=== PATIENT | female | born 1950 | race Caucasian/White ===

== ENCOUNTER 2016-01-05 14:42 | Outpatient (RCR) | payer MEDICARE, OTHER ==
[~2016-01-05] VITALS: Ht 149.9 cm; Wt 80.7 kg
[~2016-01-05 14:42] MED LIST: ACLI400A2 IH; ALBU2.5V4 INH; ALBU8CC IH; ALPR.5T PO; ALPR0.5T PO; ASP81CT PO; ATOR20TA PO; DUONEB 0.5 MG-33 ML IH; FERR325T5 PO; FLUO40CA PO; FLUO40CA12 PO; FLX20C PO; HYDR-3702 PO; HYDR-3754 PO; HYDR-3811 PO; HYDR-3882 PO; MELO15TA14 PO; OMEP20CA12 PO; OXYC1TAB12 PO; OXYGEN; PARO20TA57 PO; PRAM0.252 PO; PRAM0.5T2 PO; QUET150T PO; QUET300T2 PO; QUET300T3 PO; TRAZ150T72 PO; UMEC62.5 IH; VARE1TAB21 PO
[2016-01-05] MEDS ORDERED: IRON SUCROSE 200 MG in NORMAL SALINE 150 ML IV ONE (14:45)
[2016-01-05] MEDS ORDERED: NS FLUSH 10 ML PRN IV (15:05)
[2016-01-19] MEDS ORDERED: IRON SUCROSE 200 MG in NORMAL SALINE 150 ML IV ONE (09:50)
[2016-01-19 10:09] VITALS: BP 125/67
[2016-01-19] MEDS: NS FLUSH 3 ML PRN IV ×2 (10:09→11:17)
== END 2016-04-04 | disposition home or self-care (01) ==
LOC: EUOP 14:53
PROVIDERS: ATTEND Family Medicine
DX: D50.9 Iron deficiency anemia, unspecified (principal)
CPT/HCPCS: 96365; J1756; J7050; 36000

== ENCOUNTER → 2016-04-17 | Outpatient (REF) | payer MEDICARE, OTHER ==
[2016-04-17 13:34] LABS: BASOPHILS % (AUTO) 0 % (0-2); EOSINOPHILS # (AUTO) 0.2 10^3uL; EOSINOPHILS % (AUTO) 1 % (0-4); LYMPHOCYTES # (AUTO) 2.4 X10^3; MEAN CORPUSCULAR HGB CONC 33.3 g/dL (31.0-37.0); MEAN PLATELET VOLUME 12.5 FL (6.0-9.5); MONOCYTES # (AUTO) 0.9 X10^3; MONOCYTES % (AUTO) 8 % (3-11); NEUTROPHILS # (AUTO) 8.6 X10^3; NEUTROPHILS % (AUTO) 71 % (51-67); PLATELET COUNT 344 10^3uL (150-450); WHITE BLOOD COUNT 12.16 10^3uL (4.0-11.0)
[2016-04-17 13:35] LABS: MEAN CORPUSCULAR HEMOGLOBIN 26.3 PG (26.0-34.0); MEAN CORPUSCULAR VOLUME 79 FL (80-100)
[2016-04-17 13:44] LABS: ANION GAP 17.1 MEQ/L (3-15)
[2016-04-17 14:04] LABS: BILIRUBIN,URINE Negative (Negative); CLARITY,URINE Cloudy; GLUCOSE, URINE (UA) Negative (Negative); LEUKOCYTE ESTERASE ,URINE Negative (Negative); UROBILINOGEN,URINE 0.2 mg/dL (0.2-1.0)
[2016-04-17 14:06] LABS: COLOR,URINE Dark Yellow
== END ==
LOC: LAB 13:05
PROVIDERS: ATTEND Family Medicine
DX: Z01.818 Encounter for other preprocedural examination (principal); Z87.19 Personal history of other diseases of the digestive system; K31.811 Angiodysplasia of stomach and duodenum with bleeding
CPT/HCPCS: 80048; 81003; 85025; 85610; 85730

== ENCOUNTER → 2016-04-17 | Outpatient (CLI) | payer MEDICARE, OTHER ==
--- NOTE | 2016-04-17 16:03 | Diagnostic Imaging Report ---
INDICATION: Preoperative evaluation, COPD. DISCUSSION: Two views of the chest were obtained, comparison 02/14/2016. The lungs are hyperinflated consistent with underlying COPD. Stable normal heart size. Perihilar interstitial thickening is increased from prior exam. This is a nonspecific finding. There is no central pulmonary vascular congestion. Findings could be seen with edema, infection, or inflammation. Recommend clinical correlation. No pleural fluid or pneumothorax. IMPRESSION: 1. Interval development of perihilar interstitial thickening as discussed. Dictated by: Dictated on workstation # [id number]
== END ==
LOC: RAD 15:02
PROVIDERS: ATTEND Family Medicine
DX: Z01.818 Encounter for other preprocedural examination (principal); J43.8 Other emphysema
CPT/HCPCS: 71020

== ENCOUNTER → 2016-06-25 | Outpatient (REF) | payer MEDICARE, OTHER ==
[2016-06-25 15:38] LABS: BASOPHILS % (AUTO) 0 % (0-2); EOSINOPHILS # (AUTO) 0.1 10^3uL; EOSINOPHILS % (AUTO) 1 % (0-4); LYMPHOCYTES # (AUTO) 2.7 X10^3; MEAN CORPUSCULAR VOLUME 80 FL (80-100); MEAN PLATELET VOLUME 12.4 FL (6.0-9.5); MONOCYTES # (AUTO) 0.5 X10^3; MONOCYTES % (AUTO) 5 % (3-11); NEUTROPHILS # (AUTO) 6.8 X10^3; NEUTROPHILS % (AUTO) 68 % (51-67); PLATELET COUNT 331 10^3uL (150-450); WHITE BLOOD COUNT 10.03 10^3uL (4.0-11.0)
[2016-06-25 15:47] LABS: MEAN CORPUSCULAR HEMOGLOBIN 25.2 PG (26.0-34.0); MEAN CORPUSCULAR HGB CONC 31.7 g/dL (31.0-37.0)
[2016-06-25 16:01] LABS: ALBUMIN 4.5 g/dL (3.4-5.0); ANION GAP 14.5 MEQ/L (3-15); CALCULATED IONIZED CALCIUM 4.1 mg/dL (3.8-4.6); TOTAL PROTEIN 7.5 g/dL (6.4-8.5)
== END ==
LOC: LAB 15:25
PROVIDERS: ATTEND Family Medicine
DX: R63.4 Abnormal weight loss (principal); Z86.19 Personal history of other infectious and parasitic diseases; D64.89 Other specified anemias
CPT/HCPCS: 80053; 82607; 82746; 84439; 84443; 84481; 85025

== ENCOUNTER → 2016-06-26 | Outpatient (REF) | payer MEDICARE, OTHER | LOC: LAB 12:17 | PROVIDERS: ATTEND Family Medicine | DX: R63.4 Abnormal weight loss (principal); Z86.19 Personal history of other infectious and parasitic diseases | CPT/HCPCS: 87507 ==